=== PATIENT | female | born 1960 | race Caucasian/White ===

== ENCOUNTER 2024-04-07 09:27 | Day surgery (SDC) | payer MEDICARE ==
[~2024-04-07] VITALS: Ht 160 cm; Wt 90.9 kg
[~2024-04-07 09:27] MED LIST: ESCI-8 PO; HYDROCHLOROTHIAZIDE PO; LEVOTHYROXINE PO
[2024-04-07 10:10] VITALS: BP 139/75; PULSE 62; RESP 16; TEMP 99.2
[2024-04-07] MEDS ORDERED: propofol inj 20 ML IV ONE (11:01)
[2024-04-07] MEDS ORDERED: propofol 10mg/ml 20ml vial IV ONE (11:01)
[2024-04-07 11:30] VITALS: BP 140/65; PULSE 67; RESP 13; O2SAT 100
[2024-04-07 11:40] VITALS: BP 131/67; PULSE 64; RESP 11; O2SAT 99
[2024-04-07 11:50] VITALS: BP 142/69; PULSE 66; RESP 12; O2SAT 100
[2024-04-07 12:00] VITALS: BP 127/58; PULSE 64; RESP 13; O2SAT 100
== END 2024-04-07 12:00 | disposition home or self-care (01) ==
LOC: GI LAB 09:27
PROVIDERS: ATTEND Internal Medicine Gastroenterology
DX: R19.4 Change in bowel habit (principal); K57.30 Diverticulosis of large intestine without perforation or abscess without bleeding; I10 Essential (primary) hypertension; G47.30 Sleep apnea, unspecified; Z79.899 Other long term (current) drug therapy; Z87.891 Personal history of nicotine dependence
CPT/HCPCS: 45378; A4620; J2704; J7030; Z7512